=== PATIENT | male | born 1960 | race Caucasian/White ===

== ENCOUNTER 2016-07-20 11:29 | Emergency (ER) | payer MEDICAID ==
[~2016-07-20] VITALS: Ht 170.2 cm; Wt 73.5 kg
[~2016-07-20 11:29] MED LIST: ACET-2047 PO; CLIN-73 PO
[2016-07-20 11:39] VITALS: Ht 170.2 cm; Wt 73.5 kg
[2016-07-20] MEDS ORDERED: ASPIRIN 325 MG TAB PO STA (17:08)
[2016-07-20 17:31] LABS: ADD SCAN DIFF NO
[2016-07-20 17:34] LABS: BASOPHIL # 0.1 10^3/ul (0.0-0.1); EOSINOPHILS # 0.1 10^3/ul (0.0-0.5); EOSINOPHILS % 2.3 % (0.0-7.0); HEMATOCRIT 44.9 % (42.0-52.0); HEMOGLOBIN 15.4 g/dl (14.0-18.0); LYMPHOCYTES # 2.6 10^3/ul (0.8-2.9); LYMPHOCYTES % 50.3 % (15.0-51.0); MEAN CORPUSCULAR HGB CONC 34.3 g/dl (32.0-37.0); MEAN CORPUSCULAR VOLUME 87.4 fl (82.0-101.0); MEAN PLATELET VOLUME 8.8 fl (7.4-10.4); MONOCYTE # 0.4 10^3/ul (0.3-0.9); MONOCYTES % 7.4 % (0.0-11.0); NEUTROPHILS % 38.6 % (39.0-77.0); PLATELET COUNT 333 10^3/UL (140-415); RED BLOOD COUNT 5.14 10^6/ul (4.70-6.10); RED CELL DISTRIBUTION WIDTH 13.6 % (11.5-14.5); WHITE BLOOD COUNT 5.1 10^3/ul (4.8-10.8)
--- NOTE | 2016-07-20 17:36 | RADRPT ---
PROCEDURE: XR Chest. CLINICAL INDICATION: chest pain TECHNIQUE: Single AP view of the chest were obtained COMPARISON: None FINDINGS: The heart and mediastinum are within normal limits. The pulmonary vasculature are unremarkable. The aorta demonstrates atherosclerotic calcifications. There is no lung consolidation, pleural effusio n or pneumothorax. Degenerative changes are seen within the thoracic spine. There is no acute osse ous abnormality. IMPRESSION: No acute disease. RPTAT: AA .Kay Montes MD, Date Time Electronically viewed and signed by .Kay Montes MD, on 07/20/2016 17:35 .J/
[2016-07-20 17:42] LABS: INR 0.92; PROTIME 12.4 Sec (12.2-14.2)
[2016-07-20 17:51] LABS: ALANINE AMINOTRANSFERASE 33 IU/L (13-69); ALBUMIN 4.2 g/dl (3.3-4.9); ALBUMIN/GLOBULIN RATIO 1.13; ALKALINE PHOSPHATASE 100 IU/L (42-121); ANION GAP 10 (8-16); ASPARTATE AMINO TRANSFERASE 28 IU/L (15-46); BILIRUBIN,INDIRECT 0.1 mg/dl (0-1.1); BILIRUBIN,TOTAL 0.1 mg/dl (0.2-1.3); BLOOD UREA NITROGEN 14 mg/dl (7-20); CARBON DIOXIDE 27 mmol/L (21-31); CHLORIDE 103 mmol/L (97-110); CREATINE KINASE 116 IU/L (23-200); CREATININE 0.79 mg/dl (0.61-1.24); GLUCOSE 106 mg/dl (70-220); SODIUM 136 mmol/L (135-144); TOTAL PROTEIN 7.9 g/dl (6.1-8.1)
--- NOTE | 2016-07-20 17:52 | ERD ---
ER Documentation Chief Complaint Date/Time DATE: 07/20/16 TIME: 17:49 Chief Complaint right chest pain radiating to back x4 days HPI This is a very pleasant 56-year-old male with no past medical history that presents to the emergency department complaining of a dull achy sensation localized to his right chest wall for the past 4 days. Indicates the pain has began to radiate to his back. He has no shortness of breath at rest or exertion. He is right-handed dominant. He stated he did not undergo any heavy lifting or strenuous activity that could have exacerbated the pain. He has had no fevers no shaking or chills. He denies any chest pressure that radiates to the left arm or neck. No associated symptoms of nausea vomiting or diaphoresis. He did not take any analgesic medication prior to arrival. He denies any hemoptysis hematemesis or melanotic stools. He denies any recent travel or prolonged immobilization. ROS All systems reviewed and are negative except as per history of present illness. Medications Home Meds Active Scripts Naproxen* (Naprosyn*) 500 Mg Tablet, 500 MG PO BID Y for PAIN AND/OR INFLAMMATION, #30 TAB Prov:TITUS ZUÑIGA 07/20/16 Discontinued Scripts Acetaminophen* (Acetaminophen*) 650 Mg Tablet, 650 MG PO Q6H Y for PAIN AND OR ELEVATED TEMP, #40 TAB Prov:ZBIGNIEW THORNTON MD 08/09/15 Clindamycin Hcl* (Clindamycin Hcl*) 300 Mg Capsule, 600 MG PO Q8, #7 CAP Prov:ZBIGNIEW THORNTON MD 08/09/15 Allergies Allergies: Coded Allergies: No Known Allergy (Unverified , 07/20/16) PMhx/Soc History of Surgery: Yes (appendectomy 2015) Anesthesia Reaction: No Hx Neurological Disorder: No Hx Respiratory Disorders: No Hx Cardiac Disorders: No Hx Psychiatric Problems: No Hx Miscellaneous Medical Probl: No Hx Alcohol Use: No Hx Substance Use: No Hx Tobacco Use: No Smoking Status: Unknown if ever smoked Physical Exam Vitals Vital Signs Date Time Temp Pulse Resp B/P Pulse Ox O2 Delivery O2 Flow Rate FiO2 07/20/16 11:39 98.2 71 20 122/82 99 Physical Exam Constitutional:Well-developed. Well-nourished. HEENT:Normocephalic. Atraumatic.Pupils were equal round reactive to light. Moist mucous membranes.No tonsillar exudates. Neck: No nuchal rigidity. No lymphadenopathy. No posterior cervical spine tenderness or step-offs. Respiratory: Not using accessory muscles of respiration.Lungs were clear to auscultation bilaterally. No rhonchi. No rales. No wheezing. Cardiovascular: Regular rate regular rhythm.No murmurs. No rubs were appreciated.S1, S2 normal. Distal pulses are palpable 2+ bilaterally. Reproducible right chest wall tenderness with no crepitus no ecchymosis no flail chest GI: Abdomen was soft. Nontender. Non Distended. No pulsatile abdominal masses or bruits. No rebound. No guarding. Bowel sounds were present and normal. Muscle skeletal: Full range of motion of both the upper and lower extremities bilaterally.Normal muscle tone.No assymetrical calf tenderness or swelling. Skin: No petechia, no purpura. No lesions on the palms or the soles of the feet. No maculopapular rash. NEURO: Patient was alert, awake, orientated x3.No facial droop. Gait observed and normal with no ataxia.Speech had regular rate and rhythm. No focal neurological deficits. Result Diagram: 07/20/16 1715 07/20/16 1715 Results 24 hrs Laboratory Tests Test 07/20/16 17:15 White Blood Count 5.110^3/ul Red Blood Count 5.1410^6/ul Hemoglobin 15.4g/dl Hematocrit 44.9% Mean Corpuscular Volume 87.4fl Mean Corpuscular Hemoglobin 30.0pg Mean Corpuscular Hemoglobin Concent 34.3g/dl Red Cell Distribution Width 13.6% Platelet Count 76287^3/UL Mean Platelet Volume 8.8fl Neutrophils % 38.6% Lymphocytes % 50.3% Monocytes % 7.4% Eosinophils % 2.3% Basophils % 1.0% Nucleated Red Blood Cells % 0.0/100WBC Neutrophils # 2.010^3/ul Lymphocytes # 2.610^3/ul Monocytes # 0.410^3/ul Eosinophils # 0.110^3/ul Basophils # 0.110^3/ul Nucleated Red Blood Cells # 0.010^3/ul Prothrombin Time 12.4Sec Prothrombin Time Ratio 1.0 INR International Normalized Ratio 0.92 Activated Partial Thromboplast Time 34.0Sec Sodium Level 136mmol/L Potassium Level 4.0mmol/L Chloride Level 103mmol/L Carbon Dioxide Level 27mmol/L Anion Gap 10 Blood Urea Nitrogen 14mg/dl Creatinine 0.79mg/dl Glucose Level 106mg/dl Calcium Level 9.0mg/dl Total Bilirubin 0.1mg/dl Direct Bilirubin 0.00mg/dl Indirect Bilirubin 0.1mg/dl Aspartate Amino Transf (AST/SGOT) 28IU/L Alanine Aminotransferase (ALT/SGPT) 33IU/L Alkaline Phosphatase 100IU/L Creatine Kinase 116IU/L Creatine Kinase Index 1.0 Creatinine Kinase MB (Mass) 1.16ng/ml Troponin I < 0.012ng/ml B-Type Natriuretic Peptide 19PG/ML Total Protein 7.9g/dl Albumin 4.2g/dl Globulin 3.70g/dl Albumin/Globulin Ratio 1.13 Current Medications Medications (Trade) Dose Ordered Sig/Leisa Route PRN Reason Start Time Stop Time Status Last Admin Dose Admin Aspirin (Aspirin) 325 mg ONCE STAT PO 07/20/16 17:08 07/20/16 17:10 DC 07/20/16 17:42 IV Flush 10 ml 10 ml STK-MED ONCE .ROUTE 07/20/16 18:29 07/20/16 18:30 DC 07/20/16 19:05 Sodium Chloride 100 ml @ ud STK-MED ONCE .ROUTE 07/20/16 18:29 07/20/16 18:30 DC 07/20/16 19:05 Iohexol (Omnipaque) 100 ml @ ud STK-MED ONCE .ROUTE 07/20/16 18:29 07/20/16 18:30 DC 07/20/16 19:05 Procedures/MDM The patient presented to the emergency department complaining of chest pain. 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 12 Lead EKG tracing ordered and reviewed by myself showed: Normal sinus rhythm of 69 bpm and no arrhythmia. AK interval normal. QRS duration normal. Left axis deviation No ST segment elevation No ST segment depression. No changes consistent with acute ischemia. Given that the patient's chest pain radiated to the back I did feel is necessary to obtain a CT scan of the patient's chest to rule out a pulmonary embolism or aortic dissection. This was reviewed by both myself and the radiologist did not show any acute emergent condition such as an aortic dissection or pulmonary embolism. Patient does not smoke tobacco and there were a nodule in his right lung that indicated follow-up in the next 12 months and he is a low risk factor for lung carcinoma. The patients chest pain was reproduced by palpation and horizontal flexion of the arms. It was my clinical impression that the pain was a result of inflammation of the skin and subcutaneous structures of the chest wall versus myocardial ischemia. I felt the patient had low-risk chest pain and could therefore be safely discharged with close follow-up. Departure Diagnosis: Primary Impression: Chest wall pain Condition: TITSU Skaggs Jul 20, 2016 17:52
[2016-07-20 18:03] LABS: B-TYPE NATRIURETIC PEPTIDE 19 PG/ML (0-125)
[2016-07-20 18:12] LABS: CK-MB 1.16 ng/ml (0.0-2.4); TROPONIN-I < 0.012 ng/ml (0.00-0.12)
[2016-07-20] MEDS ORDERED: IOHEXOL 100 ML ONE (18:29)
[2016-07-20] MEDS ORDERED: SOD CHLORIDE 0.9% 100 ML ONE (18:29)
--- NOTE | 2016-07-20 19:28 | RADRPT ---
PROCEDURE: CTA Chest with contrast and with 3-D reconstructions CLINICAL INDICATION: Pain radiating to the back TECHNIQUE: The study was performed utilizing multidetector CT scanner. Direct spiral axial section s were obtained from the thoracic inlet to the upper abdomen with the use of intravenous contrast ma terial. Sagittal, coronal and 3-D reformations were obtained. The images were reviewed on a PACS wor kstation. DLP 471.35 mGycm CTDIvol 2.82 x3, 28.17, 11.80 mGy COMPARISON: No prior studies are available for comparison. FINDINGS: There are no pulmonary emboli. There is no acute dissection or aneurysm of the thoracic aorta. The aortic root measures 2.5 cm in diameter. The ascending aorta measures 2.7 cm in diameter at the level of the right pulmonary artery. The mid aortic arch measures 2.0 cm in diameter. Great vessel origins off the aortic arch are widel y patent. The descending thoracic aorta measures 2.0 cm in diameter at the level of the left pulmonary artery and 1.7 cm in diameter just above the diaphragmatic hiatus. The lungs are clear. There is a 3 mm right apical nodule. There is a 3-mm lingular nodule on series 4, image 69. There is no pleural fluid. There is no pneumothorax. Heart size is within normal limits. There is no pericardial fluid. There are no enlarged axillary or mediastinal lymph nodes. Visualized upper abdomen is unremarkable. Osseous and soft tissue structures are within normal limi ts. IMPRESSION: No CT evidence for pulmonary embolus. No acute dissection or aneurysm of the thoracic aorta. Clear lungs. 3 mm nodules at the right lung apex and lingula. Fleischner Society criteria for incidental pulmon jayden nodules of this size are for no follow-up if the patient is considered low risk for developing a pulmonary malignancy or, alternatively, an optional 12-month follow-up CT study in patients conside red high risk for developing a pulmonary malignancy. RPTAT: EE Physician Ivan Date Time Electronically viewed and signed by Mao Duenas Physician on 07/20/2016 19:27 /
[2016-07-20] MEDS ORDERED: NAPR-260 PO (19:33)
[2016-07-20 19:57] VITALS: BP 145/90; PULSE 50; RESP 18; TEMP 96.9
== END 2016-07-20 19:58 | disposition home or self-care (01) ==
LOC: E/R 11:29
DX: R07.89 Other chest pain (principal)
CPT/HCPCS: 36415; 71010; 71275; 80053; 82550; 82553; 83880; 84484; 85025; 85610; 85730; 93005; Q9967; Z7502; Z7610

== ENCOUNTER 2016-07-26 10:46 | Emergency (ER) | payer MEDICAID ==
[~2016-07-26] VITALS: Ht 165.1 cm; Wt 97.0 kg
[~2016-07-26 10:46] MED LIST changes: -ACET-2047 PO; -CLIN-73 PO; +NAPR-260 PO
[2016-07-26 10:50] VITALS: Ht 165.1 cm; Wt 97.0 kg
[2016-07-26] MEDS ORDERED: IBUP800T25 PO (13:47)
[2016-07-26] MEDS ORDERED: VALA1000 PO (13:47)
[2016-07-26] MEDS ORDERED: MED4DP PO (13:47)
--- NOTE | 2016-07-26 13:56 | ERD ---
ER Documentation Chief Complaint Date/Time DATE: 07/26/16 TIME: 13:49 Chief Complaint Complains of chest pain/ discomfort with a rash HPI This is a 56-year-old Azeri-speaking male with no past medical history that presents to the emergency department complaining of right-sided chest pain for the past 6 days. Indicates that the chest pain began in the front of his chest and 24 hours later he noticed a rash that began to spread from the right side of his chest to his back. The patient states the pain is 10 out of 10 in intensity exacerbated when he touches the rash. He has never had any similar symptoms in the past. He has had no fevers or shaking or chills. He states that the rash has not spread to his face upper or lower extremities or back. The patient also indicates that the rash has been intensely pruritic and also has a burning sensation. He denies any chest pressure that radiates to the neck arm back or jaw. ROS All systems reviewed and are negative except as per history of present illness. Medications Home Meds Active Scripts Ibuprofen* (Ibuprofen*) 800 Mg Tablet, 800 MG PO Q8, #30 TAB Prov:TITUS ZUÑIGA 07/26/16 Valacyclovir HCl (Valacyclovir) 1,000 Mg Tablet, 1000 MG PO TID for 7 Days, TAB Prov:TITUS ZUÑIGA 07/26/16 Methylprednisolone* (Medrol* DOSE PACK) 4 Mg/Dose-Pack Tab.ds.pk, 4 MG PO . DIRECTED, #1 PACKET Prov:TITUS ZUÑIGA 07/26/16 Naproxen* (Naprosyn*) 500 Mg Tablet, 500 MG PO BID Y for PAIN AND/OR INFLAMMATION, #30 TAB Prov:TITUS ZUÑIGA 07/20/16 Discontinued Scripts Acetaminophen* (Acetaminophen*) 650 Mg Tablet, 650 MG PO Q6H Y for PAIN AND OR ELEVATED TEMP, #40 TAB Prov:ZBIGNIEW THORNTON MD 08/09/15 Clindamycin Hcl* (Clindamycin Hcl*) 300 Mg Capsule, 600 MG PO Q8, #7 CAP Prov:ZBIGNIEW THORNTON MD 08/09/15 Allergies Allergies: Coded Allergies: No Known Allergy (Unverified , 07/20/16) PMhx/Soc History of Surgery: Yes (appendectomy 2014) Anesthesia Reaction: No Hx Neurological Disorder: No Hx Respiratory Disorders: No Hx Cardiac Disorders: No Hx Psychiatric Problems: No Hx Miscellaneous Medical Probl: No Hx Alcohol Use: No Hx Substance Use: No Hx Tobacco Use: No Physical Exam Vitals Vital Signs Date Time Temp Pulse Resp B/P Pulse Ox O2 Delivery O2 Flow Rate FiO2 07/26/16 10:50 98.1 70 20 130/77 98 Physical Exam Constitutional:Well-developed. Well-nourished. HEENT:Normocephalic. Atraumatic.Pupils were equal round reactive to light. Moist mucous membranes.No tonsillar exudates. No Pro sign and no ophthalmic in the upper rash involving the trigeminal nerve region slit-lamp exam showed no plaque like pseudo-hydrates or ulcerative stains with fluorescein stain. Neck: No nuchal rigidity. No lymphadenopathy. No posterior cervical spine tenderness or step-offs. Respiratory: Not using accessory muscles of respiration.Lungs were clear to auscultation bilaterally. No rhonchi. No rales. No wheezing. Cardiovascular: Regular rate regular rhythm.No murmurs. No rubs were appreciated.S1, S2 normal. Distal pulses are palpable 2+ bilaterally. GI: Abdomen was soft. Nontender. Non Distended. No pulsatile abdominal masses or bruits. No rebound. No guarding. Bowel sounds were present and normal. Muscle skeletal: Full range of motion of both the upper and lower extremities bilaterally.Normal muscle tone.No assymetrical calf tenderness or swelling. Skin: No petechia, no purpura. No lesions on the palms or the soles of the feet. No maculopapular rash. Patient had a unilateral dermatomal distribution rash consistent with grouped vesicles on an erythematous base extending above the right nipple to the back. The rash also was crusted with synchronously placed lesions. The rash did not cross the midline. NEURO: Patient was alert, awake, orientated x3.No facial droop. Gait observed and normal with no ataxia.Speech had regular rate and rhythm. No focal neurological deficits. Procedures/MDM This patient presented to the emergency department with a rash consistent with herpes zoster. There is no involvement of the ophthalmic trigeminal nerve distribution. The patient has no cardiac risk factors. 12 Lead EKG tracing ordered and reviewed by myself showed: Normal sinus rhythm of 74 bpm and no arrhythmia. OH interval normal. QRS duration normal. Left axis deviation. No ST segment elevation. T-wave inversion in the inferior lead III and aVF No ST segment depression. No changes consistent with acute ischemia. The patient will be discharged home with valacyclovir to be treated for 7 days, Medrol Dosepak and Motrin for analgesic control. The patient was discharged home in fair condition. They were instructed to return to the emergency department at any time if there was any worsening of their condition. The patient stated they would follow up with their PCP in the next 24-48 hours to initiate a suitable medication regimen under the care of their PCP as well as to allow their PCP to monitor any drug reactions. The patient was discharged home with prescriptions after they gave informed consent to the new medication. They were also fully informed by myself on the adverse effects and adverse drug interactions in order to provide adequate safeguards to prevent possible adverse reactions to medications. Departure Diagnosis: Primary Impression: Herpes zoster Herpes zoster complications: without complications Qualified Code: B02.9 - Herpes zoster without complication Condition: Fair Patient Instructions: Shingles (Herpes Zoster) TITUS ZUÑIGA July 26, 2016 13:56
== END 2016-07-26 14:08 | disposition home or self-care (01) ==
LOC: FTE 10:46
DX: B02.9 Zoster without complications (principal)
CPT/HCPCS: 93005; Z7502

== ENCOUNTER 2018-03-25 08:44 | Emergency (ER) | payer MEDICAID ==
[~2018-03-25] VITALS: Wt 78.0 kg
[~2018-03-25 08:44] MED LIST changes: +IBUP-1544 PO; +MED4DP PO; -NAPR-260 PO; +NAPR-985 PO; +VALA1000 PO
[2018-03-25 08:51] VITALS: BP 122/87; PULSE 89; RESP 18
[2018-03-25] MEDS ORDERED: KETOROLAC 30 MG INJ IV STA (09:17)
[2018-03-25] MEDS ORDERED: SOD CHLORIDE 0.9% 1,000 ML IV STA (09:17)
[2018-03-25] MEDS ORDERED: CEFTRIAXONE 1 GM/50 ML (PMX) 50 ML IVPB ONE (10:00)
[2018-03-25] MEDS ORDERED: LORAZEPAM 2 MG INJ ONE (10:21)
[2018-03-25] MEDS ORDERED: SULF1TAB31 PO (11:39)
[2018-03-25] MEDS ORDERED: CEPH-443 PO (11:39)
[2018-03-25] MEDS ORDERED: NAPR-985 PO (11:44)
--- NOTE | 2018-03-25 13:08 | ERD ---
ER Documentation Chief Complaint Chief Complaint R LEG PAIN RADIATING TO GROIN AREA X 3 DAYS HPI 58-year-old male presenting with pain to right leg. Patient states is been going on for the last 3 days. He has not taken any medications for pain. Denies fever. He has never had this before. He denies any falls or injuries. Denies any numbness or tingling. Denies other medical problems. NKDA. Surgical history denies. Social history denies ROS All systems reviewed and are negative except as per history of present illness. Medications Home Meds Active Scripts Naproxen* (Naprosyn*) 500 Mg Tablet, 500 MG PO BID PRN for PAIN AND/OR INFLAMMATION, #30 TAB Prov:ALISON ORTIZ PA-C 03/25/18 Cephalexin* (Keflex*) 500 Mg Capsule, 500 MG PO QID for 7 Days, CAP Prov:ALISON ORTIZ PA-C 03/25/18 Sulfamethoxazole/Trimethoprim* (Bactrim Ds* Tablet) 1 Each Tablet, 1 TAB PO BID, #14 TAB Prov:ALISON ORTIZ PA-C 03/25/18 Ibuprofen* (Ibuprofen*) 800 Mg Tablet, 800 MG PO Q8, #30 TAB Prov:TITUS ZUÑIGA MD 07/26/16 Valacyclovir HCl (Valacyclovir) 1,000 Mg Tablet, 1000 MG PO TID for 7 Days, TAB Prov:TITUS ZUÑIGA MD 07/26/16 Methylprednisolone* (Medrol* DOSE PACK) 4 Mg/Dose-Pack Tab.ds.pk, 4 MG PO . DIRECTED, #1 PACKET Prov:TITUS ZUÑIGA MD 07/26/16 Naproxen* (Naprosyn*) 500 Mg Tablet, 500 MG PO BID PRN for PAIN AND/OR INFLAMMATION, #30 TAB Prov:TITUS ZUÑIGA MD 07/20/16 Allergies Allergies: Coded Allergies: No Known Allergy (Unverified , 07/20/16) PMhx/Soc History of Surgery: Yes (appendectomy 2014) Anesthesia Reaction: No Hx Neurological Disorder: No Hx Respiratory Disorders: No Hx Cardiac Disorders: No Hx Psychiatric Problems: No Hx Miscellaneous Medical Probl: No Hx Alcohol Use: No Hx Substance Use: No Hx Tobacco Use: No Smoking Status: Never smoker FmHx Family History: No diabetes, No coronary disease, No other Physical Exam Vitals Vital Signs Date Temp Pulse Resp B/P (MAP) Pulse Ox O2 O2 Flow FiO2 Time Delivery Rate 03/25/18 98.1 89 18 122/87 99 08:51 (99) Physical Exam GENERAL: The patient is well-appearing, well-nourished, in no acute distress CHEST: Clear to auscultation bilaterally. There are no rales, wheezes or rhonchi. HEART: Regular rate and rhythm. No murmurs, clicks, rubs or gallops. No S3 or S4. EXTREMITIES: Equal pulses bilaterally. There is no peripheral clubbing, cya nosis or edema. No focal swelling or erythema. Full range of motion. Grossly neurovascularly intact. NEUROLOGIC: Alert and oriented. Motor strength in all 4 extremities with 5 out of 5 strength. Sensation grossly intact. SKIN: Lymphatic streaking noted of the right thigh. Mild tenderness to p alpation. No pustules. No site of inoculation noted for infection. Result Diagram: 03/25/1892903/25/1830 Results 24 hrs Laboratory Tests Test 03/25/18 09:30 03/25/18 09:36 White Blood Count 9.8 10^3/ul Red Blood Count 4.69 10^6/ul Hemoglobin 13.8 g/dl Hematocrit 40.6 % Mean Corpuscular Volume 86.6 fl Mean Corpuscular Hemoglobin 29.4 pg Mean Corpuscular Hemoglobin Concent 34.0 g/dl Red Cell Distribution Width 13.5 % Platelet Count 239 10^3/UL Mean Platelet Volume 9.6 fl Immature Granulocytes % 0.500 % Neutrophils % 77.0 % Lymphocytes % 13.6 % Monocytes % 8.3 % Eosinophils % 0.2 % Basophils % 0.4 % Nucleated Red Blood Cells % 0.0 /100WBC Immature Granulocytes # 0.050 10^3/ul Neutrophils # 7.6 10^3/ul Lymphocytes # 1.3 10^3/ul Monocytes # 0.8 10^3/ul Eosinophils # 0.0 10^3/ul Basophils # 0.0 10^3/ul Nucleated Red Blood Cells # 0.0 10^3/ul Urine Color YELLOW Urine Clarity CLEAR Urine pH 6.0 Urine Specific Hematite 1.012 Urine Ketones NEGATIVE mg/dL Urine Nitrite NEGATIVE mg/dL Urine Bilirubin NEGATIVE mg/dL Urine Urobilinogen NEGATIVE mg/dL Urine Leukocyte Esterase NEGATIVE Renny/ul Urine Hemoglobin NEGATIVE mg/dL Urine Glucose NEGATIVE mg/dL Urine Total Protein NEGATIVE mg/dl Sodium Level 140 mmol/L Potassium Level 4.2 mmol/L Chloride Level 101 mmol/L Carbon Dioxide Level 29 mmol/L Anion Gap 10 Blood Urea Nitrogen 11 mg/dl Creatinine 0.88 mg/dl Est Glomerular Filtrat Rate mL/min > 60 mL/min Glucose Level 153 mg/dl Calcium Level 9.0 mg/dl Total Bilirubin 0.4 mg/dl Direct Bilirubin 0.00 mg/dl Indirect Bilirubin 0.4 mg/dl Aspartate Amino Transf (AST/SGOT) 39 IU/L Alanine Aminotransferase (ALT/SGPT) 41 IU/L Alkaline Phosphatase 87 IU/L Total Protein 7.1 g/dl Albumin 4.1 g/dl Globulin 3.00 g/dl Albumin/Globulin Ratio 1.36 Lipase 85 U/L POC Venous Lactate 2.0 mmol/L Current Medications Medications Dose Sig/Leisa Start Time Status Last (Trade) Ordered Route PRN Stop Time Admin Dose Reason Admin Sodium 1,000 ml @ Q1H STAT 03/25/18 DC 03/25/18 Chloride 1,000 mls/hr IV 09:17 09:41 03/25/18 10:16 Ketorolac 30 mg ONCE STAT 03/25/18 DC 03/25/18 Tromethamine IV 09:17 09:41 (Toradol) 03/25/18 09:18 Ceftriaxone 50 ml @ ONCE ONCE 03/25/18 DC 03/25/18 Sodium 100 mls/hr IVPB 10:00 09:40 03/25/18 10:29 Lorazepam 2 mg STK-MED 03/25/18 DC (Ativan) ONCE .ROUTE 10:21 03/25/18 10:22 Procedures/MDM DIAGNOSTIC IMAGING REPORT Patient: DANIELA TAI : 1960 Age: 58 Sex: M MR #: [id number] DOS: 03/25/18916 Ordering MD: DUY ORTIZ PA-C Location: [facility] Room/Bed: PROCEDURE: US Lower extremity Venous. CLINICAL INDICATION: Pain and swelling TECHNIQUE: Multiple sonographic images of the right lower extremity deep venous system was obtained utilizing grayscale, color-flow, compressive son ography and doppler imaging with augmentation. The images were reviewed on a PACS workstation. COMPARISON: None. FINDINGS: There is normal compressibility and flow within the right common femoral, deep femoral, superficial femoral, posterior tibial, peroneal and popliteal veins. IMPRESSION: No sonographic evidence for deep venous thrombosis. ER Course: 1 L normal saline given ED. Blood culture sent. 1 g Rocephin given in the ED. MDM: 58-year-old male presenting with findings consistent with lymphangitis. She does not have findings showing neurovascular deficit. Patient will be trialed with outpatient antibiotics and recommended to return for close evaluation. I have low suspicion for sepsis. Lactic is within normal limits. Patient's exam is non-concerning. I have low suspicion for necrotizing fasciitis. Patient is discharged stricter precautions and recommended to return in 1-2 days for close evaluation. Patient is told symptoms change or worsen to return the ER immediately. All questions answered at discharge Departure Diagnosis: Primary Impression: Pain of right leg Condition: Stable Patient Instructions: Lymphangitis Referrals: COUNTS INCLUDE 234 BEDS AT THE [facility] YOU HAVE RECEIVED A MEDICAL SCREENING EXAM AND THE RESULTS INDICATE THAT YOU DO NOT HAVE A CONDITION THAT REQUIRES URGENT TREATMENT IN THE EMERGENCY DEPARTMENT. FURTHER EVALUATION AND TREATMENT OF YOUR CONDITION CAN WAIT UNTIL YOU ARE SEEN IN YOUR DOCTORS OFFICE WITHIN THE NEXT 1-2 DAYS. IT IS YOUR RESPONSIBILITY TO MAKE AN APPOINTMENT FOR FOLOW-UP CARE. IF YOU HAVE A PRIMARY DOCTOR --you should call your primary doctor and schedule an appointment IF YOU DO NOT HAVE A PRIMARY DOCTOR YOU CAN CALL OUR PHYSICIAN REFERRAL HOTLINE AT IF YOU CAN NOT AFFORD TO SEE A PHYSICIAN YOU CAN CHOSE FROM THE FOLLOWING COUNTS INCLUDE 234 BEDS AT THE [facility] [address] [facility] [address] [facility] [address] [facility] [facility] [address] [facility]. [facility] [address] [facility]. [facility]. [address] [place] Additional Instructions: FOLLOW UP WITH YOUR PRIMARY CARE PHYSICIAN TOMORROW.Return to this facility if you are not improving as expected. ALISON ORTIZ PA-C Mar 25, 2018 13:08
== END 2018-03-25 11:56 | disposition home or self-care (01) ==
LOC: FTE 08:44
DX: I89.1 Lymphangitis (principal)
CPT/HCPCS: 80053; 81003; 83605; 83690; 85025; 87040; 93971; J0696; J1885; J2060; J7030; 36415; 96365; 96366; 96375

== ENCOUNTER 2018-04-07 14:55 | Emergency (ER) | payer MEDICAID ==
[~2018-04-07] VITALS: Wt 77.0 kg
[~2018-04-07 14:55] MED LIST changes: +CEPH-443 PO; +SULF1TAB31 PO
[2018-04-07 14:58] VITALS: BP 125/75; PULSE 78; RESP 18
[2018-04-07] MEDS ORDERED: IBUP-1542 PO (15:55)
--- NOTE | 2018-04-07 15:57 | ERD ---
ER Documentation Chief Complaint Chief Complaint RIGHT LEG PAIN AND SWELLING HPI This 58-year-old male presents for recheck on some right medial thigh redness and swelling. Is been on antibiotics for 5 days. Denies any fevers, vomiting, history of injury such as insect bites or puncture wounds. ROS All systems reviewed and are negative except as per history of present illness. Medications Home Meds Active Scripts Ibuprofen* (Motrin*) 600 Mg Tab, 600 MG PO Q6, #15 TAB Prov:WALLACE FERNANDEZ MD 04/07/18 Naproxen* (Naprosyn*) 500 Mg Tablet, 500 MG PO BID PRN for PAIN AND/OR INFLAMMATION, #30 TAB Prov:ALISON ORTIZ PA-C 03/25/18 Cephalexin* (Keflex*) 500 Mg Capsule, 500 MG PO QID for 7 Days, CAP Prov:ALISON ORTIZ PA-C 03/25/18 Sulfamethoxazole/Trimethoprim* (Bactrim Ds* Tablet) 1 Each Tablet, 1 TAB PO BID, #14 TAB Prov:ALISON ORTIZ PA-C 03/25/18 Ibuprofen* (Ibuprofen*) 800 Mg Tablet, 800 MG PO Q8, #30 TAB Prov:TITUS ZUÑIGA MD 07/26/16 Valacyclovir HCl (Valacyclovir) 1,000 Mg Tablet, 1000 MG PO TID for 7 Days, TAB Prov:TITUS ZUÑIGA MD 07/26/16 Methylprednisolone* (Medrol* DOSE PACK) 4 Mg/Dose-Pack Tab.ds.pk, 4 MG PO . DIRECTED, #1 PACKET Prov:TITUS ZUÑIGA MD 07/26/16 Naproxen* (Naprosyn*) 500 Mg Tablet, 500 MG PO BID PRN for PAIN AND/OR INFLAMMATION, #30 TAB Prov:TITUS ZUÑIGA MD 07/20/16 Allergies Allergies: Coded Allergies: No Known Allergy (Unverified , 07/20/16) PMhx/Soc History of Surgery: Yes (appendectomy 2015) Anesthesia Reaction: No Hx Neurological Disorder: No Hx Respiratory Disorders: No Hx Cardiac Disorders: No Hx Psychiatric Problems: No Hx Miscellaneous Medical Probl: No Hx Alcohol Use: No Hx Substance Use: No Hx Tobacco Use: No Smoking Status: Never smoker FmHx Family History: No diabetes, No coronary disease, No other Physical Exam Vitals Vital Signs Date Temp Pulse Resp B/P (MAP) Pulse Ox O2 O2 Flow FiO2 Time Delivery Rate 04/07/18 98.9 78 18 125/75 99 14:58 (92) Physical Exam Const: No acute distress Head: Atraumatic Eyes: Normal Conjunctiva ENT: Normal External Ears, Nose and Mouth. Neck: Full range of motion. No meningismus. Resp: Clear to auscultation bilaterally Cardio: Regular rate and rhythm, no murmurs Abd: Soft, non tender, non distended. Normal bowel sounds Skin: No petechiae or rashes. Right medial thigh with some fluctuance and redness which appears to be improving cellulitis. There is no induration or streaking. No active discharge. Back: No midline or flank tenderness Ext: No cyanosis, or edema Neur: Awake and alert Psych: Normal Mood and Affect Results 24 hrs Current Medications Medications Dose Sig/Leisa Start Time Status Last (Trade) Ordered Route PRN Stop Time Admin Dose Reason Admin 650 mg ONCE ONCE 04/07/18 Acetaminophen PO 16:00 (Tylenol 04/07/18 16:01 Tab) Lidocaine 20 ml ONCE ONCE 04/07/18 (Xylocaine SC 16:00 1% (Mdv) 20 04/07/18 16:01 ml) Procedures/MDM Patient presents with what appears to be maturing abscess on his right medial thigh. Signs or symptoms do not suggest necrotizing fasciitis, ischemia, sepsis. Procedure note-patient was given Tylenol for pain. Right medial thigh was prepped with Betadine. 3 cc lidocaine was used for local filtration. #11 scalpel was used to incise the wound. Pus was expressed. Loculations were broken up with a probe. Wound was packed with approximately 5 cm of half-inch gauze. Wound was dressed and patient tolerated procedure well. She will be discharged home with recommendations for 2-3-day wound check for gauze removal. Should return sooner for worsening redness, fevers, new worsening symptoms. The patient was stable with no new complaints during the ER course. Clinically, there is no current evidence to suggest meningitis, sepsis, acute abdomen, pneumonia, stroke, acute coronary syndrome, pulmonary embolism, aortic dissection or any other emergent condition appearing to require further evaluation or hospitalization. Patient counseled regarding my diagnostic impression and care plan. Prior to discharge all questions answered. Pt agrees with treatment plan and understands strict return precautions. Pt is instructed to follow up with primary care provider within 24-48 hours. Precautionary instructions provided including instructions to return to the ER if not improving or for any worsening or changing symptoms or concerns. Departure Diagnosis: Primary Impression: Abscess Condition: Stable Patient Instructions: Abscess, Incision And Drainage Additional Instructions: Cheque otro vez en 2-3 vázquez para faina gavic, mas pronto para mas encarnaciongeni brown fiebre. WALLACE FERNANDEZ MD Apr 07, 2018 15:57
[2018-04-07] MEDS ORDERED: ACETAMINOPHEN 325 MG TAB PO ONE (16:00)
[2018-04-07] MEDS ORDERED: LIDOCAINE 1% (MDV) 20 ML INJ SC ONE (16:00)
== END 2018-04-07 16:10 | disposition home or self-care (01) ==
LOC: FTE 14:55
DX: L02.415 Cutaneous abscess of right lower limb (principal)
CPT/HCPCS: 10060; Z7502; Z7610

== ENCOUNTER 2018-04-10 16:02 | Emergency (ER) | payer MEDICAID ==
[~2018-04-10] VITALS: Wt 78.4 kg
[~2018-04-10 16:02] MED LIST changes: +IBUP-1542 PO
[2018-04-10 16:06] VITALS: BP 139/86; PULSE 80; RESP 18
[2018-04-10] MEDS ORDERED: IBUP-1542 PO (16:25)
[2018-04-10] MEDS ORDERED: DOXY100T21 PO (16:25)
--- NOTE | 2018-04-10 16:26 | ERD ---
ER Documentation Chief Complaint Chief Complaint recheck of R thigh abscess: p I+D on Tuesday HPI This 58-year-old male presents for recheck on her right thigh abscess incision and drainage performed by me 3 days ago. He has no fevers, vomiting, shortness of breath or chest pain. Pain is minimal only with walking. ROS All systems reviewed and are negative except as per history of present illness. Medications Home Meds Active Scripts Ibuprofen* (Motrin*) 600 Mg Tab, 600 MG PO Q6, #20 TAB Prov:WALLACE FERNANDEZ MD 04/10/18 Doxycycline Monohydrate* (Doxycycline Monohydrate*) 100 Mg Tablet, 100 MG PO BID for 7 Days, TAB Prov:WALLACE FERNANDEZ MD 04/10/18 Ibuprofen* (Motrin*) 600 Mg Tab, 600 MG PO Q6, #15 TAB Prov:WALLACE FERNANDEZ MD 04/07/18 Naproxen* (Naprosyn*) 500 Mg Tablet, 500 MG PO BID PRN for PAIN AND/OR INFLAMMATION, #30 TAB Prov:ALISON ORTIZ PA-C 03/25/18 Cephalexin* (Keflex*) 500 Mg Capsule, 500 MG PO QID for 7 Days, CAP Prov:ALISON ORTIZ PA-C 03/25/18 Sulfamethoxazole/Trimethoprim* (Bactrim Ds* Tablet) 1 Each Tablet, 1 TAB PO BID, #14 TAB Prov:ALISON ORTIZ PA-C 03/25/18 Ibuprofen* (Ibuprofen*) 800 Mg Tablet, 800 MG PO Q8, #30 TAB Prov:TITUS ZUÑIGA MD 07/26/16 Valacyclovir HCl (Valacyclovir) 1,000 Mg Tablet, 1000 MG PO TID for 7 Days, TAB Prov:TITUS ZUÑIGA MD 07/26/16 Methylprednisolone* (Medrol* DOSE PACK) 4 Mg/Dose-Pack Tab.ds.pk, 4 MG PO . DIRECTED, #1 PACKET Prov:TITUS ZUÑIGA MD 07/26/16 Naproxen* (Naprosyn*) 500 Mg Tablet, 500 MG PO BID PRN for PAIN AND/OR INFLAMMATION, #30 TAB Prov:TITUS ZUÑIGA MD 07/20/16 Allergies Allergies: Coded Allergies: No Known Allergy (Unverified , 07/20/16) PMhx/Soc History of Surgery: Yes (appendectomy 2015) Anesthesia Reaction: No Hx Neurological Disorder: No Hx Respiratory Disorders: No Hx Cardiac Disorders: No Hx Psychiatric Problems: No Hx Miscellaneous Medical Probl: No Hx Alcohol Use: No Hx Substance Use: No Hx Tobacco Use: No FmHx Family History: No diabetes, No coronary disease, No other Physical Exam Vitals Vital Signs Date Temp Pulse Resp B/P (MAP) Pulse Ox O2 O2 Flow FiO2 Time Delivery Rate 04/10/18 97.1 80 18 139/86 97 16:06 (103) Physical Exam Const: No acute distress Head: Atraumatic Eyes: Normal Conjunctiva ENT: Normal External Ears, Nose and Mouth. Neck: Full range of motion. No meningismus. Resp: Clear to auscultation bilaterally Cardio: Regular rate and rhythm, no murmurs Abd: Soft, non tender, non distended. Normal bowel sounds Skin: No petechiae or rashes. Healing abscess on the right medial thigh. Gauze removed. No purulent discharge. Mild surrounding induration without significant warmth or erythema. No residual fluctuance. Back: No midline or flank tenderness Ext: No cyanosis, or edema Neur: Awake and alert Psych: Normal Mood and Affect Procedures/MDM Gauze removed and wound redressed. Patient will be discharged home with instructions for wound care and return precautions for fevers, worsening redness, new worsening symptoms. Wound appears to be healing satisfactorily. Given persistent induration we will continue treatment with doxycycline and recommendations to recheck as directed or with primary care doctor. The patient was stable with no new complaints during the ER course. Clinically, there is no current evidence to suggest meningitis, sepsis, acute abdomen, pneumonia, stroke, acute coronary syndrome, pulmonary embolism, aortic dissection or any other emergent condition appearing to require further evaluation or hospitalization. Patient counseled regarding my diagnostic impression and care plan. Prior to discharge all questions answered. Pt agrees with treatment plan and understands strict return precautions. Pt is instructed to follow up with primary care provider within 24-48 hours. Precautionary instructions provided including instructions to return to the ER if not improving or for any worsening or changing symptoms or concerns. Departure Diagnosis: Primary Impression: Abscess Condition: Stable Patient Instructions: Abscess, Incision And Drainage Additional Instructions: colt bauero si esta mas encarnacion, echada o miley fienre. WALLACE FERNANDEZ MD Apr 10, 2018 16:26
== END 2018-04-10 17:17 | disposition home or self-care (01) ==
LOC: FTE 16:02
DX: L02.415 Cutaneous abscess of right lower limb (principal)
CPT/HCPCS: 99283

== ENCOUNTER 2018-10-23 15:26 | Emergency (ER) | payer MEDICAID ==
[~2018-10-23] VITALS: Ht 162.6 cm; Wt 79.4 kg
[~2018-10-23 15:26] MED LIST changes: +DOXY100T21 PO
[2018-10-23 15:34] VITALS: BP 130/66; PULSE 87; RESP 16; Ht 162.6 cm; Wt 79.4 kg
--- NOTE | 2018-10-23 15:41 | EN ---
Date/Time of Note Date/Time of Note DATE: 10/23/18 TIME: 15:39 ER Progress Note HEF-62-mlsd-old male otherwise healthy with 2-day history of some pain and redness extending from right distal tibia area up to inner thigh with tenderness presumed from lymph node and right groin. Denies trauma or insect bite or inciting event. ed2 appropriate for treatment of presumed cellulitis. WALLACE FERNANDEZ MD Oct 23, 2018 15:41
[2018-10-23] MEDS ORDERED: LIDOCAINE 1% (MDV) 20 ML INJ SC ONE ×2 (17:00→17:30)
[2018-10-23] MEDS ORDERED: CEFTRIAXONE 1 GM INJ IM ONE (17:00)
--- NOTE | 2018-10-30 14:29 | ERD ---
ER Documentation Chief Complaint Chief Complaint PAIN IN RT LEG SINCE TUESDAY NIGHT HPI This is a 58-year-old male presenting to the emergency department complaining of swelling and redness to the right leg for the past 2 days. He reports 5/10 severity pain. He denies any fevers or chills or other symptoms at this time. Symptoms are mild at this time. He has history of cellulitis in this leg in the past and the symptoms are the same. ROS All systems reviewed and are negative except as per history of present illness. Medications Home Meds Active Scripts Naproxen* (Naprosyn*) 500 Mg Tablet, 500 MG PO BID PRN for PAIN AND/OR INFLAMMATION, #30 TAB Prov:ZBIGNIEW VELIZ PA-C 10/23/18 Sulfamethoxazole/Trimethoprim* (Bactrim Ds* Tablet) 1 Each Tablet, 1 TAB PO BID, #14 TAB Prov:ZBIGNIEW VELIZ PA-C 10/23/18 Cephalexin* (Keflex*) 500 Mg Capsule, 500 MG PO QID for 7 Days, CAP Prov:ZBIGNIEW VELIZ PA-C 10/23/18 Ibuprofen* (Motrin*) 600 Mg Tab, 600 MG PO Q6, #20 TAB Prov:WALLACE FERNANDEZ MD 04/10/18 Doxycycline Monohydrate* (Doxycycline Monohydrate*) 100 Mg Tablet, 100 MG PO BID for 7 Days, TAB Prov:WALLACE FERNANDEZ MD 04/10/18 Ibuprofen* (Motrin*) 600 Mg Tab, 600 MG PO Q6, #15 TAB Prov:WALLACE FERNANDEZ MD 04/07/18 Naproxen* (Naprosyn*) 500 Mg Tablet, 500 MG PO BID PRN for PAIN AND/OR INFLAMMATION, #30 TAB Prov:ALISON ORTIZ PA-C 03/25/18 Cephalexin* (Keflex*) 500 Mg Capsule, 500 MG PO QID for 7 Days, CAP Prov:ALISON ORTIZ PA-C 03/25/18 Sulfamethoxazole/Trimethoprim* (Bactrim Ds* Tablet) 1 Each Tablet, 1 TAB PO BID, #14 TAB Prov:ALISON ORTIZ PA-C 03/25/18 Ibuprofen* (Ibuprofen*) 800 Mg Tablet, 800 MG PO Q8, #30 TAB Prov:TITUS ZUÑIGA MD 07/26/16 valACYclovir HCl (valACYclovir) 1,000 Mg Tablet, 1000 MG PO TID for 7 Days, TAB Prov:TITUS ZUÑIGA MD 07/26/16 Methylprednisolone* (Medrol* DOSE PACK) 4 Mg/Dose-Pack Tab.ds.pk, 4 MG PO . DIRECTED, #1 PACKET Prov:TITUS ZUÑIGA MD 07/26/16 Naproxen* (Naprosyn*) 500 Mg Tablet, 500 MG PO BID PRN for PAIN AND/OR INFLAMMATION, #30 TAB Prov:TITUS ZUÑIGA MD 07/20/16 Allergies Allergies: Coded Allergies: No Known Allergy (Unverified , 10/23/18) PMhx/Soc History of Surgery: Yes (appendectomy 2014) Anesthesia Reaction: No Hx Neurological Disorder: No Hx Respiratory Disorders: No Hx Cardiac Disorders: No Hx Psychiatric Problems: No Hx Miscellaneous Medical Probl: No Hx Alcohol Use: No Hx Substance Use: No Hx Tobacco Use: No Smoking Status: Never smoker FmHx Family History: No diabetes Physical Exam Physical Exam Const: No acute distress Head: Atraumatic Eyes: Normal Conjunctiva ENT: Normal External Ears, Nose and Mouth. Neck: Full range of motion. No meningismus. Resp: Clear to auscultation bilaterally Cardio: Regular rate and rhythm, no murmurs Abd: Soft, non tender, non distended. Normal bowel sounds Skin: No petechiae or rashes Back: No midline or flank tenderness Ext: Erythema of the right lower leg which is not circumferential. There is no obvious abscess. No lymphatic streaking. No discharge. No crepitus on palpation. Neur: Awake and alert Psych: Normal Mood and Affect Results 24 hrs Current Medications Medications Dose Sig/Leisa Start Time Status Last (Trade) Ordered Route PRN Stop Time Admin Dose Reason Admin Ceftriaxone 1 gm ONCE ONCE 10/23/18 DC 10/23/18 Sodium IM 17:00 16:50 (Rocephin) 10/23/18 17:01 Lidocaine 20 ml ONCE ONCE 10/23/18 DC 10/23/18 (Xylocaine SC 17:00 16:51 1% (Mdv) 20 10/23/18 17:01 ml) Lidocaine 20 ml ONCE ONCE 10/23/18 DC (Xylocaine SC 17:30 1% (Mdv) 20 10/23/18 17:31 ml) Procedures/MDM 58-year-old male presents emergency department with signs and symptoms most consistent with cellulitis of the right lower extremity. Low suspicion for DVT as the patient has no risk factors and no calf tenderness. Patient is nontoxic and well-appearing and his vital signs are stable. He is afebrile. Patient will be treated as an outpatient with antibiotics for cellulitis. He was advised to have 2-day wound check and return sooner for any new or concerning symptoms. The patient was in agreement with the diagnosis, plan, need for fol low-up, return precautions. Departure Diagnosis: Primary Impression: Cellulitis of right leg Condition: Fair Patient Instructions: Cellulitis Ref[facility]: [facility] Moi se jackson hecho un examen mdico de control que le indica que no est en simeon condicin que requiera tratamiento urgente en el Departamento de Emergencia. Un estudio ms profundo y el tratamiento de donahue condicin pueden esperar sin ningn riesgo hasta que usted sea atendida/o en el consultorio de donahue mdico o simeon clnica. Es responsabilidad suya arreglar simeon keaton para el seguimiento del justin. MANEJO DE CONDICIONES NO URGENTES EN EL FUTURO 1) Si usted tiene un mdico de atencin primaria: Usted debera llamar a donahue mdico de atencin primaria antes de venir al departamento de emergencia. Despus de las horas de consultorio, donahue doctor o donahue asociado/a est disponible por telfono. El mdico o enfermero de sudheer en el servicio telefnico puede asesorarle por landen medio para atender el problema, o justin contrario se puede programar simeon keaton. 2) Si usted no tiene un mdico de atencin primaria: Llame al mdico o clnica de referencia que aparece abajo cata las horas de consultorio para hacer simeon keaton para que le vean. CLINICAS: [facility] [phone] [facility] [phone] [facility] [id number] [place] [phone] [place] [address] [phone] [facility] [phone] Additional Instructions: Regrese a estas instalaciones dentro de DOS RODRÍGUEZ para un examen de seguimiento.Regrese antes si donahue condicin se empeora. Llame al doctor MAANA y rosalia simeon KEATON PARA DENTRO DE 1-2 GARCIA.Dgale a la secretaria que nosotros le instruimos hacer esta keaton.Avise o llame si donahue condicin se empeora antes de la keaton. Regresa aqui si peor o no mejor. ZBIGNIEW VELIZ PA-C Oct 30, 2018 14:29
== END 2018-10-23 17:46 | disposition home or self-care (01) ==
LOC: FTE 15:26
DX: L03.115 Cellulitis of right lower limb (principal)
CPT/HCPCS: 96372; J0696; Z7502; Z7610